=== PATIENT | male | born 1995 | race African-American/Black ===

== ENCOUNTER 2023-10-23 23:39 | Emergency (ER) | payer SELFPAY ==
[~2023-10-23] VITALS: Ht 193 cm; Wt 91.8 kg
[2023-10-24 00:02] VITALS: TEMP 98.1
[2023-10-24] MEDS ORDERED: Mag/Al Hydrox/Simeth Susp 30 ML CUP PO ONE (02:15)
[2023-10-24] MEDS ORDERED: NS 1,000 ML IV ONE (02:15)
[2023-10-24 02:18] LABS: COLLECTION METHOD RANDOM VOIDED
[2023-10-24 02:29] LABS: PH 5.5 (5.0-8.5); URINE APPEARANCE CLEAR (CLEAR/HAZY); URINE BLOOD NEGATIVE (NEGATIVE); URINE COLOR Dark Yellow (YELLOW); URINE GLUCOSE NEGATIVE (NEGATIVE); URINE KETONE NEGATIVE (NEGATIVE); URINE NITRATE NEGATIVE (NEGATIVE); URINE PROTEIN(semi-quant) NEGATIVE (NEGATIVE)
[2023-10-24 02:35] LABS: BASO % 0.5 % (0.0-2.0); EOS # 0.1 K/mm3 (0.0-0.7); EOS % 0.8 % (0.0-4.0); GRAN # 4.9 K/mm3 (1.4-6.5); GRAN % 62.6 % (42.2-75.2); HEMATOCRIT 44.6 % (42.0-52.0); HEMOGLOBIN 14.2 g/dl (13.5-18.0); LYMPH # 2.3 K/mm3 (1.2-3.4); MEAN CELL VOLUME 92 fl (80.0-100.0); MEAN CORPUSCULAR HEMOGLOBIN 29 pg (27-31); MEAN CORPUSCULAR HGB CONC 32 g/dl (33.0-37.0); MEAN PLATELET VOLUME 9.9 fl (7.4-10.4); MONO # 0.5 K/mm3 (0.1-0.6); MONO % 6.6 % (1.7-9.3); PLATELET COUNT 206 K/mm3 (130-400); RED BLOOD COUNT 4.86 M/mm3 (4.20-5.60); REDCELL DISTRIBUTION WIDTH-CV 13.1 % (11.5-14.5)
[2023-10-24 02:36] LABS: URINE RBC 0-2 /hpf (0-2); URINE WBC 20-50 /hpf (0-2)
[2023-10-24 02:36] LABS: PROTHROMBIN TIME 11.2 SECONDS (9.7-12.8)
[2023-10-24 02:37] LABS: MUCOUS PRESENT (NOT PRESENT); URINE BACTERIA MODERATE /hpf (NONE SEEN)
[2023-10-24 02:58] LABS: ALBUMIN 3.3 g/dL (3.5-5.0); BILIRUBIN,TOTAL 0.5 mg/dL (0.2-1.2); CALCIUM 9.2 mg/dL (8.4-10.2); CREATININE, serum 1.03 mg/dL (0.72-1.25); MAGNESIUM 2.1 mg/dL (1.6-2.6); TOTAL PROTEIN 5.9 g/dl (6.2-8.1)
[2023-10-24 03:03] LABS: TROPONIN-I 0.02 ng/mL (0.00-0.033)
[2023-10-24 03:25] VITALS: BP 132/95; PULSE 77
[2023-10-24] MEDS ORDERED: BACTRIM DS 8001 TAB PO (03:26)
[2023-10-24] MEDS ORDERED: FLAGYL500 MG PO (03:26)
[2023-10-24] MEDS ORDERED: PRIL40 PO (03:26)
== END 2023-10-24 03:37 | disposition home or self-care (01) ==
LOC: COL.ER 23:39
PROVIDERS: Internal Medicine
DX: K21.00 Gastro-esophageal reflux disease with esophagitis, without bleeding (principal); N30.00 Acute cystitis without hematuria; E86.0 Dehydration; A59.00 Urogenital trichomoniasis, unspecified; R00.1 Bradycardia, unspecified
CPT/HCPCS: J2765; J7030